=== PATIENT | female | born 1970 | race African-American/Black ===

== ENCOUNTER 2022-08-28 01:18 | Emergency (ER) | payer MEDICARE ==
[2022-08-28] MEDS ORDERED: diphenhydrAMINE 50 MG/ML VIAL ONE (01:42)
[2022-08-28] MEDS ORDERED: Metoclopramide HCl 10 MG/2 ML VIAL ONE (01:43)
[2022-08-28] MEDS ORDERED: Ketorolac Tromethamine 30 MG/ML VIAL ONE (01:43)
== END 2022-08-28 02:50 | disposition home or self-care (01) ==
LOC: CSHERS 01:18
DX: G43.909 Migraine, unspecified, not intractable, without status migrainosus (principal); I10 Essential (primary) hypertension; J45.909 Unspecified asthma, uncomplicated; E11.9 Type 2 diabetes mellitus without complications; Z79.899 Other long term (current) drug therapy
CPT/HCPCS: 96374; 96375; J1200; J1885; J2765